=== PATIENT | female | born 1990 | race Caucasian/White ===

== ENCOUNTER 2022-12-11 19:32 | Observation (INO) | payer OTHER ==
[~2022-12-11] VITALS: Ht 167.6 cm; Wt 127.7 kg
[~2022-12-11 19:32] MED LIST: CLINDAMYCIN HC150 MG PO; FLINTSTONES M300 MCG PO; IRON 100 PLUS1 EACH PO; NORCO 5-325 TA1 EACH PO; VITAFOL-OB+DHA1 EACH PO
[2022-12-11 23:33] VITALS: BP 115/53
--- NOTE | 2022-12-12 | NUR ---
PT ADMITTED AT 2324 TO ROOM 113. A/O, INDEPENDENT WITH TRANSFERS, HAS A 4 MONTH OLD BABY, BREAST FEEDING, PLANNING TO PUMP AND DUMP. EDUCATED CALL LIGHT.
--- NOTE | 2022-12-12 00:13 | NUR ---
PT ALERT AND ORIENTED, RESTING IN BED, IVF STARTED PER SL IN RIGHT FOREARM, SITE INTACT, LR AT 100ML/HR, ADMIT ASSESSMENT COMPLETED, PT STATES CURRENT PAIN 2/10, DULL ACHE, DENIES ADDITIONAL MEDICATION, ROOM ORIENTATION GIVEN, PT NPO, HAND BREAST PUMP AT BEDSIDE, PT REPORTS SHE HAS SOME VAGINAL BLEEDING FROM MENES. CESAR PADS PLACED IN BR.
--- NOTE | 2022-12-12 04:10 | NUR ---
PT LAYING ON RIGHT SIDE, RESP EVEN AND REG, WITHOUT DISTRESS.
[2022-12-12 05:20] VITALS: BP 117/59
--- NOTE | 2022-12-12 05:35 | NUR ---
VS AND I&O OBTAINED. PT UP TO BR FOR ORAL CARE AND TO VOID. GAIT STEADY. BACK TO BED, ROGER WELL. REPORTS ABD PAIN TOLERABLE 11/06. PT DENIES NAUSEA. PT REMAINS NPO. NO FURTHER NEEDS.
--- NOTE | 2022-12-12 07:10 | NUR ---
REPORT RECEIVED FROM TRACEY CR. PT RESTING IN BED, AWAKE AND ALERT. PT DENIES PAIN AND NAUSEA AT THIS TIME. NO ADDITIONAL REQUESTS OR COMPLAINTS. CALL LIGHT WITHIN REACH. BED RAILS UP.
--- NOTE | 2022-12-12 07:59 | NUR ---
MORNING ASSESSMENT AND MEDICAITON DUE. PT AWAKE AND ALERT, RESTING IN BED. PT OREINTED TO ALL. PT DENIES PAIN AND NASUEA AT THIS TIME ALTHOUGH DOES REPORTS 4/10 "SORENESS" TO RIGHT UPPER QUADRANT WITH PALPATION. PT ALSO REPORTS "A LITTLE" PAIN WITH RIGHT FLANK PAPATION. LUNG SOUNDS CLEAR. HEART TONES REGULAR. BOWEL TONES ACTIVE. PT REPORTS SHE CONTINUES TO PASS GAS. PRE PROCEEDURE CHECK LIST COMPLETE. PT VERBLAIZES UNDERSTANDING OF PLAN OF CARE. PHARMACIST, ADELAIDE, CALLED REGARDING BREAST FEEDING AND STATES HE RECCOMDENS THAT PT WAIT 24 HOURS AFTER MORPHINE ADMINISTRATION, PUMP AND DUMP UNTIL THAT TIME. PT UPDATED AND VERBALIZES UNDERSTANDING. PT CONTINUES ON HER MENSES, REPORTS MENSES IS NORMAL FOR HER. NO ADDITIONAL REQUESTS OR COMPLAINTS. CALL LIGHT WITHIN REACH. BED RAILS UP. MOUTH SWABS PROVIDED FOR POSSIBLE DRY MOUTH.
[2022-12-12 09:03] VITALS: BP 111/55
--- NOTE | 2022-12-12 09:20 | NUR ---
THIS RN TO ROOM WITH DR. POSADA FOR ROUNDS. PT UPDATED ON PLAN OF CARE AND VERBALIZES UNDERSTANDING. PT REPORTS HER QUESTIONS HAVE BEEN ANSWERED. GALL BLADDER INFORMATIONAL BOOKLET PROVIDED. PT DENIES ADDITIONAL REQUESTS OR COMPLAINTS. CALL LIGHT WITHIN REACH. FAMILY AT BEDSIDE.
--- NOTE | 2022-12-12 10:03 | NUR ---
NEW MEDICATION ORDER. PT RESTING IN BED, HED OF BED AT 20 DEGREES. CHG WIPES PROVIDED AND PT UP TO RESTROOM. WIPES DONE PER PROTOCOL, NO ASSISTANCE NEEDED. PT VOIDS 200ML DARK YELLOW URINE, IV FLUID BOLUS STARTED. MEDICATION GIVEN. PT REVIEWING GALLBLADDER BOOKLET. PT CONTINUES TO DENY PAIN AND NAUSEA. NO ADDIITONAL REQUSTS OR COMPLAINTS. CALL LIGHT WITHIN REACH. BED RAILS UP.
--- NOTE | 2022-12-12 10:40 | NUR ---
MED REC COMPLETE
--- NOTE | 2022-12-12 10:48 | NUR ---
THIS RN TO ROOM TO CHECK ON PT. PT RESTING IN BED ON RIGHT SIDE. PT DENIES PAIN AND NAUSEA. NO REQUESTS OR COMPLAINTS AT THIS TIME. IV FLUID BOLUS NEAR COMPLETION. NO ADDITIONAL REQUESTS OR COMPLAINTS. CALL LIGHT WITHIN REACH. BED RAILS UP.
--- NOTE | 2022-12-12 11:40 | NUR ---
HOURLY ROUNDING: PT RESTING IN BED, WATCHING TV. PT CONTINUES TO DENY PAIN AND NAUSEA. PT UPDATED ON PLAN OF CARE. NO ADDITONAL REQUESTS OR COMPLAINTS. PT UP TO RESTROOM TO VOID, INDEPENDANT. CESAR CARE PER PT. CALL LIGHT WITHIN REACH. BED RAILS UP.
--- NOTE | 2022-12-12 12:42 | NUR ---
HOURLY ROUDNING: PT CONTINUES RESTING IN BED. PT DENIES PAIN AND NAUSEA. SCD'S PLACED FOR PRE-OP. ABX AT BEDSIDE FOR ADMINISTRATION IN OR. ANTICIPTAING ARRIVAL OF OR TEAM SHORTLY. PT STATES ALL HER QUESTIONS HAVE BEEN ANSWERED. NO ADDITIONAL REQUESTS OR COMPLAINTS. CALL LIGHT WITHIN REACH. BED RAILS UP.
--- NOTE | 2022-12-12 12:46 | NUR ---
SPOKE TO PATIENT ABOUT THE DISCHARGE PLAN OF CARE. THE PATIENT PLANS TO GO HOME WITH HER . PATIENT HAS 2 SMALL CHILDREN AND FAMILY THAT IS WILLING TO HELP NEEDED.PATIENT'S DEMOGRAPHICS IN CHART ARE CORRECT. PATIENT CAN DO HER OWN ADLS. PATIENT CAN AFFORD HOUSING AND FOOD PER PATIENT. PATIENT HAS 2-3 STAIRS TO HOUSE THAT PATIENT IS ABLE TO GO UP AND DOWN JUST FINE. NO OTHER DME IS NEEDED. PATIENT IS ABLE TO DRIVE WHEN WELL AND NOT HAVING PAIN. PATIENT DOES NOT HAVE ANY CASE MANAGMENT NEEDS AT THIS TIME. INSTRUTED TO LET HOME HEALTH CARE PROVIDER KNOW OF ANY NEEDS THAT ARISE. PATIENT HAS LOTS OF FAMILY THAT WILL BE HELPFUL.
--- NOTE | 2022-12-12 12:49 | NUR ---
OR TEAM ARRIVED TO DIAGRAMMER AND SEAMER PT. REPORT GIVEN TO TRACEY ONEILL. PT REPORTS HER QUESTIONS HAVE BEEN ANSWERED. PT TO OR.
[2022-12-12 16:58] VITALS: BP 116/62
--- NOTE | 2022-12-12 17:00 | NUR ---
PT RETURNED FROM PACU. PT AWAKE AND OREINTED. PT REPROTS 5/10 PAIN ON HER RIGHT SIDE AND UPPER QUADRANT. PERCOSET OFFERED. PT REPORTS THIS MEDICAITON MAKES HER "THROW UP." NOTIFED AND NEW ORDERS GIVEN FOR NORCO. ORDERS ENTERED AND REPEAT BACK PERFORMED BY TRACEY WILLSON. PT TOELRATING PO FLUIDS AND CRACKERS. DINNER DELIVERED TO PT. PT DENIES NASUEA. ABDOME SOFT BUT TENDER IN RIGHT UPPER QUADRANT. LAPAROSCOPIC INCISIONS C/D/I WITH EDGES WELL APROXIMATED. STERI STRIPS INTACT AND BANDAID IN PLACE OVER UMBILICAL INCISION. PT DENIES ADDITIONAL REQUESTS OR COMPLAINTS. REMAINS ON 2L O2 BY NC WHILE RESTING TO MAINTAIN OXGYEN SATURATION ABOVE 92%. PT RESPONDING TO TEXT MESSAGES. PT REPORTS GAS MAIN FITTER TOLD HER SHE CAN RETURN TO BREAST FEEDING AT ANY TIME. NO ADDITIONAL REQUESTS OR COMPLAINTS. CALL LIGHT WITHIN REACH. BED RAILS UP.
--- NOTE | 2022-12-12 17:13 | NUR ---
12/12/22 1713 Althea Neff 1552 PT ARRIVED IN PACU NON RESPONSIVE TO NOXIOUS STIMULI WITH OPA IN PLACE. 1607 PT REACTIVE. OPA REMOVED. 1623 C/O ABD PAIN 5/10. FENTANYL 25MCG GIVEN IVP. 1635 NO CHANGE IN PAIN LEVEL. FENTANYL 25MCG GIVEN IVP. 1640 SIPPING ON WATER. 1642 PAIN INCREASED TO 7/10. FENTANYL 50MCG GIVEN IVP. 1650 PAIN DOWN TO 5/10. 1655 TO ROOM 113. REPORT GIVEN TO RN. BED PLUGGED IN.
--- NOTE | 2022-12-12 17:41 | NUR ---
PT POST OP DAY ZERO AFTER LAPAROSCOPIC CHOLECYSTECTOMY. INDEPENADNT PRIOR TO PROCEEDURE, SUSPECTED TO RETURN TO INDEPENDANT STATUS SOON. PT ADVANED TO REGULAR DIET AND IS TOELRATING WELL WITH OUT NAUSEA. PRN PAIN MEDICAITON GIVEN FOR POST SUGRICAL PAIN. LAPAROSCOPIC SITES X4 REMAINS WNL WITH MINMAL SEROUSANGUINOUS DRAINAGE SEEN. STERI STRIPS AND BANDAID REMAIN IN INTACT. BOWEL TONES HYPOACTIVE. ABDOMEN SOFT BUT TENDER. ANTICIPATING DISCHRAGE SOON. PT VOIDING QUANITTY SUFFICIENT. PT USES CALL LIGHT AND MAKES NEEDS KNOWN.
--- NOTE | 2022-12-12 18:01 | NUR ---
VITALS AND ASSESSMENT DUE. PT RESTING IN BED WITH HEAD OF BED ELEVATED TO 65 DEGREES. PT REPORTS ONGOING 5-6/10 RIGHT SIDED ABDOMINAL PAIN. PT ENCOURAGED TO GET UP TO SIT ON EDGE OF BED. TOELRATES WELL AND REPORTS THIS IMPROVES HER PAIN, NOW 4/10. PT DENIES NEED FOR ADDITONAL PAIN MEDICAITON. PT TOELRATING PO INTAKE WELL, DENIES NASUEA. ABDOMINAL LAPAROSCOPIC SITES REMAIN WNL WITH EDGES WELL APPROXIMATED AND STERI STRIPS INTACT. MINIMAL SEROUS ANGUINOUS DRAINAGE NOTED. ABDOMEN SOFT AND TENDER ONLY ON RIGHT SIDE HYPOACTIVE BOWEL TONES HEARD. PT DENIES ADDITIONAL REQUESTS OR COPMLAINTS. CALL LIGHT WITHIN REACH. BED RAILS UP.
[2022-12-12 18:02] VITALS: BP 125/62
--- NOTE | 2022-12-12 18:46 | NUR ---
VITALS AND ASSESSMENT DUE. PT CALL LIGHT ON. PT REQUESTS ASSISTANCE UP TO RESTROOM. IV SALINE LOCKED. STAND BY ASSIST UP TO RESTROOM. PT VOIDS 400ML CLEAR YELLOW URINE WITHOUT ISSUE. STAND BY ASSIST BACK TO BED. BMAT LEVEL 4. ABDOMINAL INCISIONS WNL WITH SMALL AMOUNTS OF RED DRAINAGE. GAUZE APPLIED TO PROTECT PTS CLOTHING FROM DRAINAGE. ABDOMEN SOFT, TENDER ONLY IN RIGHT SIDE. PT REPORTS 3/10 PAIN THAT IS WELL CONTROLLED. PT STATES SHE IS READY TO GO HOME. PT TOLEARTING ROOM AIR. PT STEADY ON FEET. PT UP AND DRESSED, NO ASSISTANCE NEEDED. NO ADDITONAL REQUESTS OR COMPLAINTS. CALL LIGHT WITHIN REACH. BED RAILS UP.
[2022-12-12 18:53] VITALS: BP 129/58
[2022-12-12] MEDS ORDERED: HYDROCODON-ACE1 EA10 PO (19:06)
[2022-12-12] MEDS ORDERED: IBUPROFEN600 MG PO (19:06)
[2022-12-12] MEDS ORDERED: ACETAMINOPHEN500 MG PO (19:06)
[2022-12-12 19:40] VITALS: BP 125/66
--- NOTE | 2022-12-12 19:56 | NUR ---
pt SITTING UP CHAIR. WRITTEN AND VERBAL DISCHARGE INSTRUCTIONS PROVIDED BY RN AND MD. VSS. GI ASSESSMENT COMPLETE. LAP SITES WITH STERI STRIPS X 4, DRESSINGS INTACT, SMALL AMT. SS DRAINAGE NOTED. pt STATES ABD TENDER WITH PALPATION IN RUQ. DENIES NEED FOR PRN PAIN MEDICATIONS. IV D/C'D WNL, CATH TIP INTACT. ESCORTED TO FRONT OF HOSPITAL WITH SINGH LIND VIA WHEELCHAIR.
--- NOTE | 2022-12-13 10:09 | OR ---
[facility] [address], [place] [address] Signed DATE OF OPERATION: 12/11/2022 SURGEON: Savannah Posada MD PREOPERATIVE DIAGNOSES: 1. Acute calculous cholecystitis. 2. Morbid obesity. BMI 45.1. POSTOPERATIVE DIAGNOSES: 1. Acute calculous cholecystitis. 2. Morbid obesity. BMI 45.1. PROCEDURE: 1. Laparoscopic cholecystectomy with operative cholangiogram, prolonged, complicated, difficult. 2. Surgeon-directed fluoroscopy. ANESTHESIA: General endotracheal, Gorge Siemens, SUPERVISOR SPINNING and local, 0.25% Marcaine with epinephrine 10 mL. INDICATION: This 32-year-old morbidly obese white woman is two months from her 3rd child delivery by . She has had episodic right upper abdominal and subcostal pain highly suggestive of biliary disease. She presented to the emergency room today where she was noted to have tenderness and findings consistent with acute cholecystitis. The gallbladder ultrasound showed multiple gallstones. Liver enzymes are normal. White count was elevated. She has been fluid resuscitated, given intravenous antibiotics, IV fluid resuscitation, anticipating cholecystectomy preferred by laparoscopic approach. The risk of bleeding, infection, bile duct injury, need for open procedure, and so forth were all reviewed with her in detail. She understands and wished to proceed. FINDINGS: She had considerable abdominal obesity as expected. The fatty liver was noted as well. The gallbladder was acutely inflamed. Multiple yellow gallstones were noted within it once excised. Cholangiogram was normal. DESCRIPTION OF PROCEDURE: The patient was brought to the operating room, given a general endotracheal anesthetic. Preoperative antibiotic Ancef had been given. Sequential compression device stockings Electronically Signed By: SAVANNAH POSADA MD 12/13/22 1009 PATIENT NAME: GLADYS CARMONA OPERATIVE REPORT DATE OF : [birth year] REPORT #: [id number] PHYSICIAN: SAVANNAH POSADA MD PCP: NO PRIMARY CARE PHYSICIAN REPORT IS CONFIDENTIAL AND NOT TO BE RELEASED WITHOUT AUTHORIZATION [facility] [address], [place] [address] Signed applied and heparin subcutaneously administered. After satisfactory general endotracheal anesthesia, the abdomen was prepared with a chlorhexidine solution and draped sterilely. An infraumbilical incision was made and using an open Libia cannula technique, the abdomen was entered and pneumoperitoneum achieved to level 14 mmHg with carbon dioxide gas. A considerable amount of abdominal wall obesity was noted as well as intra-abdominal obesity and have a fatty infiltrated liver. The gallbladder was obviously tensely inflamed and distended. Three additional trocars were placed in usual configuration in the subxiphoid, right midclavicular, and right anterior axillary line. The gallbladder was tense enough that it did require decompression. This was accomplished with a decompressive laparoscopic needle device. The puncture site was grasped and elevated cephalad. The usual technique of elevation and stabilization of the laparoscopic grasper was inadequate with an Allis clamp. On that basis, the grasper was elevated more fully and secured to the skin with atraumatic towel clamp. This provided a safe exposure of the gallbladder more fully. The infundibulum was grasped with a grasper and using meticulous blunt electrocautery dissection the triangle of Calot was dissected free. The cystic duct did not appear particularly dilated. Stones were quite easily noted within the gallbladder itself. Once the triangle of Calot was well identified and clips applied to the cystic arterial branches, the clip was applied across gallbladder cystic duct junction. A transverse choledochotomy was made in the cystic duct. Egress of clear bile was noted. An Shin catheter was easily insinuated into the cystic duct. An intraoperative cholangiography was undertaken showing free flow of contrast into the biliary tree with prompt emptying into the duodenum. There was no sign of filling defect or other abnormality. The catheter was removed and the cystic duct was triply clipped and divided and the gallbladder dissected free in a retrograde fashion. Entry into the gallbladder allowed for spillage of two small stones, both of which were later grasped and extracted. Once the gallbladder was fully excised from the gallbladder bed, it was placed in an endobag and extracted through the infraumbilical port site. The gallbladder was opened on the back table by the circulating nurse found to have chronic and subacute inflammatory change of the mucosa and multiple yellow multifaceted gallstones. There was no evidence of neoplasm. Irrigation was undertaken in subhepatic space and minimal stone debris was gathered and removed. Irrigation was undertaken more fully showing no evidence of retained stone or other problem. Two clips were applied to omental capillary bleeders as well. Upon removal of the epigastric port, blood was noted to be dripping from the site and on that basis, cautery was applied with no reasonable benefit and on that basis, a Clovis-Dariel device was used to secure the fascial edges with a single 0 Vicryl tie. This provided good hemostasis. The trocars removed without sign of bleeding or other Electronically Signed By: SAVANNAH POSADA MD 12/13/22 1009 PATIENT NAME: GLADYS CARMONA OPERATIVE REPORT DATE OF : [birth year] REPORT #: [id number] PHYSICIAN: SAVANNAH POSADA MD PCP: NO PRIMARY CARE PHYSICIAN REPORT IS CONFIDENTIAL AND NOT TO BE RELEASED WITHOUT AUTHORIZATION [facility] [address] [place] [place] [address] Signed problems. Excess irrigation fluid had been suctioned free. Plans were then made for closure. The infraumbilical fascial incision was reapproximated with interrupted 0 Vicryl suture. 10 mL of 0.25% Marcaine with epinephrine injected in the trocar sites. Skin incisions were then closed with interrupted 3-0 Vicryl. Steri-Strips were applied. The patient was ultimately extubated and transferred to recovery room in good condition having suffered no complications. Sponge, needle, and instrument counts reported as correct x3. MD INEZ Triana/MODL /[id number] Copies: ~ Electronically Signed By: SAVANNAH POSADA MD 12/13/22 1009 PATIENT NAME: GLADYS CARMONA OPERATIVE REPORT DATE OF : [birth year] REPORT #: [id number] PHYSICIAN: SAVANNAH POSADA MD PCP: NO PRIMARY CARE PHYSICIAN REPORT IS CONFIDENTIAL AND NOT TO BE RELEASED WITHOUT AUTHORIZATION
--- NOTE | 2022-12-13 10:09 | HP ---
[facility] [address], [place] [address] Signed ADMISSION DATE: 12/12/2022 REASON FOR ADMISSION: Acute calculous cholecystitis. HISTORY OF PRESENT ILLNESS: This morbidly obese 32-year-old white woman (BMI of 45.4) presented to the emergency room late last night with complaints of right upper abdominal pain. The patient has had recurrent bouts of epigastric and right subcostal pain and right subscapular pain. She is two months from her 3rd child (by ). Her symptoms began yesterday at about midday. She was directly admitted to the hospital under my direction for consideration of acute cholecystitis. A gallbladder ultrasound showed multiple gallstones and liver enzymes were noted to be normal with a white count elevated at 12.3. PAST MEDICAL HISTORY: Includes: 1. Morbid obesity as previously described. 2. History of Staph aureus armpit infection in the past, history of tonsillectomy and adenoidectomy. She does not smoke. SOCIAL HISTORY: She is . She is accompanied by her infant and a toddler and her is present as well. REVIEW OF SYSTEMS: She did have nausea and vomiting. No longer having those symptoms. She continues to have right subcostal and epigastric pain and some right subscapular pain. PHYSICAL EXAMINATION: GENERAL: A pleasant, morbidly obese white woman who does not look systemically toxic. VITAL SIGNS: Blood pressure is 128/69, pulse 82, temperature 98.6. HEENT: Trachea is midline. Mucous membranes are moist. CHEST: Clear. HEART: Regular without murmur. ABDOMEN: Quite obese, generally soft. There is tenderness in the epigastric and right subcostal area. There is no palpable mass. I detect no ascites. EXTREMITIES: Show no clubbing, cyanosis, or edema. LABORATORY STUDIES: Electronically Signed By: SAVANNAH POSADA MD 12/13/22 1009 PATIENT NAME: GLADYS CARMONA HISTORY AND PHYSICAL DATE OF : [birth year] REPORT #: [id number] PHYSICIAN: SAVANNAH POSADA MD PCP: NO PRIMARY CARE PHYSICIAN REPORT IS CONFIDENTIAL AND NOT TO BE RELEASED WITHOUT AUTHORIZATION [facility] [address], [place] [address] Signed Show white count of 12.3, hematocrit 38.3, and platelets 259,000. Chem profile is normal. Alkaline phosphatase is 100. Urinalysis is notable for 4 to 6 white cells per high-power field. Bacteria rare. Chest x-ray was normal. Ultrasound showed gallstones but no pericholecystic fluid collection. Beta HCG was negative. jogger operator, repeat CBC showed a white count of 9.7, hematocrit 37.3, platelets 325,000. Basic metabolic profile was normal. Creatinine 0.56. Coag studies were normal with an INR of 0.97. ASSESSMENT: The patient has had recurrent bouts of biliary colic and now has likely acute calculous cholecystitis. Discussed the pathophysiology of this with the patient and her with use of the white board in the room and with discussion about the pathophysiology of acute calculous cholecystitis and the recommendation of treatment to include cholecystectomy. The risk of bleeding, infection, bile duct injury, need for open procedure, need for common duct exploration and so forth were all reviewed in detail. She understands and wished to proceed. PLAN: We will continue with fluid administration, IV antibiotics, parenteral pain medication and DVT prophylaxis anticipating cholecystectomy today. Savannah Posada MD JM/MODL /[id number] cc: Mateusz Fajardo MD Copies: ~ Electronically Signed By: SAVANNAH POSADA MD 12/13/22 1009 PATIENT NAME: GLADYS CARMONA HISTORY AND PHYSICAL DATE OF : [birth year] REPORT #: [id number] PHYSICIAN: SAVANNAH POSADA MD PCP: NO PRIMARY CARE PHYSICIAN REPORT IS CONFIDENTIAL AND NOT TO BE RELEASED WITHOUT AUTHORIZATION
--- NOTE | 2022-12-15 11:44 | PATH ---
[facility] [address] [facility] [place], [place] [address] Signed SPECIMEN(S): A GALLBLADDER AND STONES SPECIMEN SOURCE: A. GALLBLADDER AND STONES CLINICAL HISTORY: Acute cholecystitis. FINAL PATHOLOGIC DIAGNOSIS: Gallbladder and stones: - Chronic calculous cholecystitis. - Mucosal cholesterolosis. JVR:austen:C2NR MICROSCOPIC EXAMINATION: Histologic sections of all submitted blocks are examined by light microscopy. These findings, together with the gross examination, support the pathologic diagnosis. GROSS DESCRIPTION: The specimen, labeled and designated "Hafsa, gallbladder," is received in formalin and consists of Specimen: Previously opened gallbladder. Dimensions: 8.3 x 4.7 cm. Serosa: Violaceous, smooth. Cystic Duct: Inked, unobstructed. Calculi: Several yellow gallstones within the container that range in size from 0.1 to 0.8 cm in greatest dimension. Mucosa: Tchula-carias, velvety with yellow flecking. Wall thickness: 0.4 cm. Lymph node: No pericystic lymph nodes are grossly identified. Additional: None. Oven Attendant sections are submitted in (A1). JS (under the direct supervision of a pathologist) The Gross Description was prepared using a voice recognition system. The report was reviewed for accuracy; however, sound-alike word errors, addition and/or deletions may occur. If there is any question about this report, please contact Client Services. PERFORMING LABORATORY: The technical component was performed by [facility], Mao Tourefatoumata Tyrone, PATIENT NAME: KRISTINE,GLADYS RODRIGUEZ PATHOLOGY DATE OF : [birth year] REPORT #: [id number] PHYSICIAN: [facility] PCP: NO PRIMARY CARE PHYSICIAN REPORT IS CONFIDENTIAL AND NOT TO BE RELEASED WITHOUT AUTHORIZATION [facility] [address] [facility] [place], [place] [address] [place] [address] (CLIA# [id number]). Professional interpretation was performed by [facility] - [address] [place] [address] (CLIA#: [id number]). Diagnostician: Marino Swanson MD Pathologist Electronically Signed 12/15/2022 Copies: ~ PATIENT NAME: GLADYS CARMONA PATHOLOGY DATE OF : [birth year] REPORT #: [id number] PHYSICIAN: SUPA GREER PCP: NO PRIMARY CARE PHYSICIAN REPORT IS CONFIDENTIAL AND NOT TO BE RELEASED WITHOUT AUTHORIZATION
== END 2022-12-12 19:52 | disposition home or self-care (01) ==
LOC: ED 19:32 → MS 19:34
PROVIDERS: ADMIT Surgery; ATTEND Surgery
PROC: 0FT44ZZ Resection of Gallbladder, Percutaneous Endoscopic Approach (ICD-10-PCS; principal; 2022-12-11)
PROC: BF121ZZ Fluoroscopy of Gallbladder using Low Osmolar Contrast (ICD-10-PCS; 2022-12-11)
DX: K80.12 Calculus of gallbladder with acute and chronic cholecystitis without obstruction (principal); E66.01 Morbid (severe) obesity due to excess calories; Z68.42 Body mass index [BMI] 45.0-49.9, adult; K76.0 Fatty (change of) liver, not elsewhere classified
CPT/HCPCS: 00790; 36415; 71045; 74300; 76705; 80048; 80053; 81001; 83690; 83735; 84703; 85025; 85610; 85730; 96361; 96374; 96375; 99285-25; J0131; J0690; J1100; J1644; J1885; J2250; J2270; J2405; J2704; J3010; J7121; Q9967

== ENCOUNTER 2025-03-17 14:55 | Emergency (ER) | payer OTHER ==
[~2025-03-17] VITALS: Ht 167.6 cm; Wt 133.9 kg
[~2025-03-17 14:55] MED LIST changes: +ACETAMINOPHEN500 MG PO; +HYDROCODON-ACE1 EA10 PO; +IBUPROFEN600 MG PO
[2025-03-17] MEDS ORDERED: BUSPIRONE HCL5 MG PO (15:01)
[2025-03-17] MEDS ORDERED: DEXAMETHASONE SOD PHOS 10 MG/ML VIAL IV ONE (15:15)
[2025-03-17] MEDS ORDERED: SODIUM CHLORIDE 0.9% 1,000 ML IV PRN (15:15)
[2025-03-17] MEDS ORDERED: EPIPEN AUTO INJECTOR 0.3 MG/0.3 ML ML IM ONE (15:15)
[2025-03-17] MEDS ORDERED: EPINEPHRIN0.15 MG/01 IM (16:23)
[2025-03-17] MEDS ORDERED: EPIPEN 2-P0.3 MG/0.3 IM (17:21)
[2025-03-17 17:26] VITALS: BP 124/86
== END 2025-03-17 17:27 | disposition home or self-care (01) ==
LOC: ED 14:55
DX: T78.3XXA Angioneurotic edema, initial encounter (principal); Z79.899 Other long term (current) drug therapy; Z91.010 Allergy to peanuts
CPT/HCPCS: 96372; 96374; 96375; 99284-25; J0169; J1100; J1200; J7030